=== PATIENT | male | born 1955 | race Two or more races ===

== ENCOUNTER 2022-01-30 13:11 | Inpatient (IN) | payer MEDICARE, MEDICAID ==
[~2022-01-30] VITALS: Ht 180.3 cm; Wt 170.0 kg
[2022-01-30] MEDS ORDERED: SODIUM CHLORIDE 0.9% 1,000 ML IV ONE (13:45)
[2022-01-30 14:15] LABS: Basophils # (auto) 0 10 ^3/uL (0-0.2); Basophils % (auto) 0.5 % (0.0-2.0); Eosinophils # (auto) 0 10 ^3/uL (0-0.8); Eosinophils % (auto) 0.2 % (0.0-7.0); Hemoglobin 12.1 g/dL (13.5-17.5); Lymphocytes # (auto) 0.2 10 ^3/uL (0.4-5.4); Lymphocytes % (auto) 2.9 % (10.0-50.0); Mean Corpuscular Hemoglobin 29.8 pg (28.0-32.0); Mean Corpuscular Hgb Conc. 32.8 g/dL (32.0-36.0); Mean Corpuscular Volume 90.7 fL (80.0-100.0); Monocytes # (auto) 0.2 10 ^3/uL (0-1.3); Monocytes % (auto) 2.4 % (0.0-12.0); Neutrophils # (auto) 6.3 10 ^3/uL (1.6-8.6); Red Blood Cells 4.08 10^6/uL (4.5-5.90); Red Cell Distribution Width 15.3 % (11.8-14.3); White Blood Cell 6.7 10^3/uL (4.4-10.8)
[2022-01-30 14:31] LABS: INR 1.06 (0.9-1.15); Partial Thromboplastin Time 28.8 sec (24.6-33.4)
[2022-01-30 14:58] LABS: BUN/Creatinine Ratio 29.4; Calcium 8.5 mg/dL (8.5-10.1); Potassium 3.6 mmol/L (3.5-5.1)
[2022-01-30 14:59] LABS: Albumin 2.6 g/dL (3.4-5.0); Bilirubin, Total 0.7 mg/dL (0.2-1.0); Total Protein 7.7 g/dL (6.4-8.2)
[2022-01-30] MEDS ORDERED: ACETAMINOPHEN 325 MG TAB PO ONE (16:15)
[2022-01-30 16:29] LABS: Urine Bacteria NONE SEEN /hpf (None Seen); Urine Blood Negative /uL (Negative); Urine WBC <1 /hpf (0 - 3)
[2022-01-30] MEDS ORDERED: cefTRIAXone 1GM/50ML D5W 50 ML IV ONE (16:45)
[2022-01-30] MEDS ORDERED: AZITHROMYCIN 500MG/ 250ML 250 ML IV ONE (16:45)
[2022-01-30] MEDS ORDERED: FUROSEMIDE 40 MG/4 ML VIAL IV ONE (16:45)
[2022-01-30] MEDS ORDERED: NITROGLYCERIN 0.4 MG SL TAB SL PRN (17:30)
[2022-01-30] MEDS ORDERED: MORPHINE SULFATE INJ 2 MG/ml SYRG IV PRN ×2 (17:30)
[2022-01-30] MEDS ORDERED: FLUO40CA PO (17:43)
[2022-01-30] MEDS ORDERED: LEVO100T8 PO (17:43)
[2022-01-30] MEDS ORDERED: ATEN25TA PO (17:43)
[2022-01-30] MEDS ORDERED: AMLO-489 PO (17:43)
[2022-01-30] MEDS ORDERED: HYDR50TA15 PO (17:43)
[2022-01-30] MEDS ORDERED: CAPT100T2 PO (17:43)
[2022-01-30] MEDS ORDERED: DEXTROSE (50%) 50ML SYRG IV PRN (17:45)
[2022-01-30] MEDS ORDERED: POTASSIUM CHL 20 Meq TABLET PO ONE (17:45)
[2022-01-30] MEDS ORDERED: SODIUM CHLORIDE 0.9% 1,000 ML IV SCH (17:45)
[2022-01-30 18:23] LABS: Cholesterol 143 mg/dL (< 200)
[2022-01-30] MEDS ORDERED: DEXA4TAB90 PO (18:24)
[2022-01-30] MEDS ORDERED: HYDR-4072 (18:24)
[2022-01-30] MEDS ORDERED: CHLO25TA2 PO (18:24)
[2022-01-30] MEDS ORDERED: ACYC-166 PO (18:24)
[2022-01-30] MEDS ORDERED: FURO40TA4 PO (18:24)
[2022-01-30] MEDS ORDERED: LEVO250T69 PO (18:24)
[2022-01-30] MEDS ORDERED: POTA-167 (18:24)
[2022-01-30] MEDS ORDERED: MORP30TA5 PO (18:24)
[2022-01-30] MEDS ORDERED: ARIP10TA29 PO (18:24)
[2022-01-30 18:26] LABS: HDL Cholesterol 48 mg/dL (40-59); LDL Cholesterol 77 mg/dL (< 100); Triglycerides 109 mg/dL (< 150)
[2022-01-30] MEDS ORDERED: POM PO (18:37)
[2022-01-30] MEDS: amLODIPine BESYLATE 5 MG TAB PO SCH (22:00)
[2022-01-30] MEDS: CAPTOPRIL 25 MG TAB PO SCH (22:00)
[2022-01-30] MEDS: hydrALAZINE HCL 25 MG TAB PO SCH (22:00)
[2022-01-30] MEDS: ATENOLOL 25 MG TAB PO SCH (22:00)
[2022-01-30] MEDS: ACCU-CHEK COMFORT CURVE STRIP VI SCH (22:51)
[2022-01-30] MEDS: InsuLIN REG 1unit/0.01ml Soln (100units/ml) SC SCH (23:02)
[2022-01-30] MEDS: NYSTATIN TOPICAL POWDER 15GM TOP SCH (23:11)
[2022-01-31] MEDS: HYDROcodone-ACET 5/325MG TAB PO PRN ×3 (00:42→16:21)
[2022-01-31 04:31] LABS: Basophils # (auto) 0 10 ^3/uL (0-0.2); Basophils % (auto) 0.5 % (0.0-2.0); Eosinophils # (auto) 0 10 ^3/uL (0-0.8); Eosinophils % (auto) 0.1 % (0.0-7.0); Hematocrit 28.8 % (41.0-53.0); Hemoglobin 9.5 g/dL (13.5-17.5); Lymphocytes # (auto) 0.3 10 ^3/uL (0.4-5.4); Lymphocytes % (auto) 6.5 % (10.0-50.0); Mean Corpuscular Hemoglobin 29.5 pg (28.0-32.0); Mean Corpuscular Volume 89.4 fL (80.0-100.0); Monocytes # (auto) 0.2 10 ^3/uL (0-1.3); Monocytes % (auto) 3.7 % (0.0-12.0); Neutrophils # (auto) 4.4 10 ^3/uL (1.6-8.6); Neutrophils % (auto) 89.2 % (37.0-80.0); Nucleated Red Blood Cells % 0.1 %; Red Blood Cells 3.22 10^6/uL (4.5-5.90); Red Cell Distribution Width 14.8 % (11.8-14.3); White Blood Cell 4.9 10^3/uL (4.4-10.8)
[2022-01-31 04:54] LABS: Potassium 3.1 mmol/L (3.5-5.1)
[2022-01-31 05:02] LABS: BUN/Creatinine Ratio 30.6; Bilirubin, Total 0.6 mg/dL (0.2-1.0); Calcium 7.5 mg/dL (8.5-10.1); Total Protein 6.5 g/dL (6.4-8.2)
[2022-01-31] MEDS: InsuLIN REG 1unit/0.01ml Soln (100units/ml) SC SCH ×4 (07:00→22:25)
[2022-01-31] MEDS: hydrALAZINE HCL 25 MG TAB PO SCH ×3 (07:05→22:12)
[2022-01-31] MEDS: CAPTOPRIL 25 MG TAB PO SCH ×3 (07:06→22:22)
[2022-01-31] MEDS: FLUoxetine HCL 20 MG CAP PO SCH (07:08)
[2022-01-31] MEDS: LEVOTHYROXINE SODIUM 100 MCG TAB PO SCH (07:08)
[2022-01-31] MEDS: ACCU-CHEK COMFORT CURVE STRIP VI SCH ×4 (07:27→22:12)
[2022-01-31] MEDS: cefTRIAXone 1GM/50ML D5W 50 ML IV SCH (09:55)
[2022-01-31] MEDS ORDERED: POTASSIUM CHL 10 Meq TABLET PO SCH (10:00)
[2022-01-31] MEDS: AZITHROMYCIN 500MG/ 250ML 250 ML IV SCH (10:53)
[2022-01-31] MEDS: amLODIPine BESYLATE 5 MG TAB PO SCH ×2 (10:54→22:16)
[2022-01-31] MEDS: ENOXAPARIN SOD 40 MG/0.4 ML SYRINGE SC SCH (10:57)
[2022-01-31] MEDS: FUROSEMIDE 20 MG/2 ML VIAL IV SCH (10:57)
[2022-01-31] MEDS: NYSTATIN TOPICAL POWDER 15GM TOP SCH ×2 (10:58→22:25)
[2022-01-31] MEDS: ATENOLOL 25 MG TAB PO SCH ×2 (11:33→22:16)
[2022-01-31] MEDS ORDERED: POTASSIUM EFFERVESENT TAB 25 MEQ PO ONE (12:30)
[2022-01-31] MEDS ORDERED: ZINC SULFATE 220mg CAP or TAB PO ONE (13:15)
[2022-01-31] MEDS ORDERED: ASCORBIC ACID 500 MG TAB PO ONE (13:15)
[2022-01-31] MEDS ORDERED: CHOLECALCIFEROL (VITD3) 2,000 UNIT CAP/TAB PO ONE (13:15)
[2022-01-31] MEDS ORDERED: ALBUTEROL SULF 2.5 MG/0.5ML(0.5%) NEB SOLN NEB SCH (14:00)
[2022-01-31] MEDS ORDERED: IPRATROPIUM BROM 0.5 MG/2.5ML INH SOL NEB SCH (14:00)
[2022-01-31] MEDS: methylPREDNISolone SOD SUCC 125 MG/2 ML VL IV SCH ×2 (14:12→22:16)
[2022-01-31 14:13] VITALS: BP 134/74
[2022-01-31] MEDS: ALBUTEROL SULF HFA 90MCG INH 200DOSE IN SCH (22:00)
[2022-01-31] MEDS: ASCORBIC ACID 500 MG TAB PO SCH (22:13)
[2022-01-31 23:21] VITALS: BP 145/86
[2022-02-01] MEDS: HYDROcodone-ACET 5/325MG TAB PO PRN ×2 (00:29→15:45)
[2022-02-01] MEDS ORDERED: ONDANSETRON HCL 4 MG/2 ML VIAL IV PRN (03:30)
[2022-02-01 05:00] VITALS: BP 121/98
[2022-02-01] MEDS: CAPTOPRIL 25 MG TAB PO SCH ×3 (05:48→22:50)
[2022-02-01] MEDS: methylPREDNISolone SOD SUCC 125 MG/2 ML VL IV SCH ×3 (05:48→22:49)
[2022-02-01] MEDS: FLUoxetine HCL 20 MG CAP PO SCH (05:48)
[2022-02-01] MEDS: hydrALAZINE HCL 25 MG TAB PO SCH ×3 (05:48→22:49)
[2022-02-01] MEDS: ACCU-CHEK COMFORT CURVE STRIP VI SCH ×4 (05:49→22:53)
[2022-02-01] MEDS: LEVOTHYROXINE SODIUM 100 MCG TAB PO SCH (05:49)
[2022-02-01] MEDS: InsuLIN REG 1unit/0.01ml Soln (100units/ml) SC SCH ×4 (05:50→22:55)
[2022-02-01] MEDS: ALBUTEROL SULF HFA 90MCG INH 200DOSE IN SCH ×3 (06:00→19:56)
[2022-02-01] MEDS: hydrALAZINE HCL 20 MG/ML VL IV PRN ×2 (06:20→14:34)
[2022-02-01 09:11] VITALS: BP 167/89
[2022-02-01] MEDS: cefTRIAXone 1GM/50ML D5W 50 ML IV SCH (09:30)
[2022-02-01] MEDS: ZINC SULFATE 220mg CAP or TAB PO SCH (09:31)
[2022-02-01] MEDS: ASPirin 81 mg TAB PO SCH (09:31)
[2022-02-01] MEDS: FUROSEMIDE 20 MG/2 ML VIAL IV SCH (09:31)
[2022-02-01] MEDS: CHOLECALCIFEROL (VITD3) 2,000 UNIT CAP/TAB PO SCH (09:31)
[2022-02-01] MEDS: ASCORBIC ACID 500 MG TAB PO SCH ×2 (09:31→22:52)
[2022-02-01] MEDS: ENOXAPARIN SOD 40 MG/0.4 ML SYRINGE SC SCH (09:32)
[2022-02-01] MEDS: NYSTATIN TOPICAL POWDER 15GM TOP SCH ×2 (09:32→22:53)
[2022-02-01] MEDS: ATENOLOL 25 MG TAB PO SCH ×2 (09:32→22:00)
[2022-02-01] MEDS: amLODIPine BESYLATE 5 MG TAB PO SCH ×2 (09:32→22:51)
[2022-02-01] MEDS ORDERED: REMDESIVIR PER PHARMACY 0 ML IV SCH (10:45)
[2022-02-01] MEDS: ONDANSETRON HCL 4 MG/2 ML VIAL IV PRN ×3 (11:00→22:54)
[2022-02-01] MEDS: AZITHROMYCIN 500MG/ 250ML 250 ML IV SCH (11:11)
[2022-02-01 13:00] VITALS: BP 185/100
[2022-02-01] MEDS ORDERED: REMDESIVIR 200 MG in NS 210ml LOADING DOSE ADULT IV ONE (15:00)
[2022-02-01 17:00] VITALS: BP 174/57
[2022-02-01 22:00] VITALS: BP 164/93
[2022-02-02 05:00] VITALS: BP 144/82
[2022-02-02 05:59] LABS: Calcium 8.1 mg/dL (8.5-10.1); Potassium 3.3 mmol/L (3.5-5.1)
[2022-02-02] MEDS: ALBUTEROL SULF HFA 90MCG INH 200DOSE IN SCH ×3 (06:00→22:00)
[2022-02-02 06:02] LABS: BUN/Creatinine Ratio 32.9
[2022-02-02 06:13] LABS: Bilirubin, Total 0.6 mg/dL (0.2-1.0); Total Protein 7.3 g/dL (6.4-8.2)
[2022-02-02] MEDS: methylPREDNISolone SOD SUCC 125 MG/2 ML VL IV SCH ×3 (06:20→21:33)
[2022-02-02] MEDS: CAPTOPRIL 25 MG TAB PO SCH ×3 (06:21→21:43)
[2022-02-02] MEDS: hydrALAZINE HCL 25 MG TAB PO SCH ×3 (06:21→21:43)
[2022-02-02] MEDS: FLUoxetine HCL 20 MG CAP PO SCH (06:22)
[2022-02-02] MEDS: ACCU-CHEK COMFORT CURVE STRIP VI SCH ×4 (06:22→21:45)
[2022-02-02] MEDS: LEVOTHYROXINE SODIUM 100 MCG TAB PO SCH (06:22)
[2022-02-02] MEDS: HYDROcodone-ACET 5/325MG TAB PO PRN ×2 (06:23→12:07)
[2022-02-02] MEDS: InsuLIN REG 1unit/0.01ml Soln (100units/ml) SC SCH ×4 (06:31→21:55)
[2022-02-02] MEDS: AZITHROMYCIN 500MG/ 250ML 250 ML IV SCH (08:15)
[2022-02-02] MEDS: cefTRIAXone 1GM/50ML D5W 50 ML IV SCH (08:15)
[2022-02-02] MEDS: ZINC SULFATE 220mg CAP or TAB PO SCH (08:15)
[2022-02-02] MEDS: ENOXAPARIN SOD 40 MG/0.4 ML SYRINGE SC SCH (08:15)
[2022-02-02] MEDS: ASPirin 81 mg TAB PO SCH (08:15)
[2022-02-02] MEDS: ASCORBIC ACID 500 MG TAB PO SCH ×2 (08:16→21:44)
[2022-02-02] MEDS: amLODIPine BESYLATE 5 MG TAB PO SCH ×2 (08:16→21:44)
[2022-02-02] MEDS: CHOLECALCIFEROL (VITD3) 2,000 UNIT CAP/TAB PO SCH (08:16)
[2022-02-02] MEDS: ATENOLOL 25 MG TAB PO SCH ×2 (08:16→21:44)
[2022-02-02] MEDS: NYSTATIN TOPICAL POWDER 15GM TOP SCH ×2 (08:17→21:45)
[2022-02-02] MEDS: FUROSEMIDE 20 MG/2 ML VIAL IV SCH (08:19)
[2022-02-02 09:00] VITALS: BP 154/76
[2022-02-02] MEDS ORDERED: FUROSEMIDE 20 MG/2 ML VIAL IV ONE (11:30)
[2022-02-02 13:00] VITALS: BP 142/71
[2022-02-02] MEDS: REMDESIVIR 100mg 100 MG in SODIUM CHL 0.9% 230 ML IV SCH (15:19)
[2022-02-02 22:00] VITALS: BP 159/88
[2022-02-03 05:00] VITALS: BP 159/80
[2022-02-03] MEDS: methylPREDNISolone SOD SUCC 125 MG/2 ML VL IV SCH ×3 (06:51→21:35)
[2022-02-03] MEDS: hydrALAZINE HCL 25 MG TAB PO SCH ×3 (06:52→21:54)
[2022-02-03] MEDS: CAPTOPRIL 25 MG TAB PO SCH ×3 (06:53→21:55)
[2022-02-03] MEDS: LEVOTHYROXINE SODIUM 100 MCG TAB PO SCH (06:54)
[2022-02-03] MEDS: FLUoxetine HCL 20 MG CAP PO SCH (06:54)
[2022-02-03] MEDS: ACCU-CHEK COMFORT CURVE STRIP VI SCH ×4 (06:54→21:50)
[2022-02-03] MEDS: ONDANSETRON HCL 4 MG/2 ML VIAL IV PRN (06:57)
[2022-02-03] MEDS: InsuLIN REG 1unit/0.01ml Soln (100units/ml) SC SCH ×4 (06:57→21:54)
[2022-02-03 06:58] LABS: Calcium 8.7 mg/dL (8.5-10.1); Potassium 3.5 mmol/L (3.5-5.1)
[2022-02-03 07:01] LABS: Albumin 1.8 g/dL (3.4-5.0); BUN/Creatinine Ratio 38.2
[2022-02-03 07:29] LABS: Bilirubin, Total 0.6 mg/dL (0.2-1.0); Phosphorus 2.5 mg/dL (2.5-4.90)
[2022-02-03] MEDS: ALBUTEROL SULF HFA 90MCG INH 200DOSE IN SCH ×3 (07:47→22:30)
[2022-02-03] MEDS: cefTRIAXone 1GM/50ML D5W 50 ML IV SCH (08:30)
[2022-02-03] MEDS: AZITHROMYCIN 500MG/ 250ML 250 ML IV SCH (08:30)
[2022-02-03] MEDS: FUROSEMIDE 40 MG/4 ML VIAL IV SCH (08:30)
[2022-02-03] MEDS: ENOXAPARIN SOD 40 MG/0.4 ML SYRINGE SC SCH (08:30)
[2022-02-03] MEDS: ASPirin 81 mg TAB PO SCH (08:31)
[2022-02-03] MEDS: CHOLECALCIFEROL (VITD3) 2,000 UNIT CAP/TAB PO SCH (08:31)
[2022-02-03] MEDS: ZINC SULFATE 220mg CAP or TAB PO SCH (08:31)
[2022-02-03] MEDS: amLODIPine BESYLATE 5 MG TAB PO SCH ×2 (08:32→22:09)
[2022-02-03] MEDS: ASCORBIC ACID 500 MG TAB PO SCH ×2 (08:33→21:35)
[2022-02-03] MEDS: ATENOLOL 25 MG TAB PO SCH ×2 (08:33→21:56)
[2022-02-03] MEDS: NYSTATIN TOPICAL POWDER 15GM TOP SCH ×2 (08:33→21:51)
[2022-02-03 08:41] VITALS: BP 190/95
[2022-02-03] MEDS: HYDROcodone-ACET 5/325MG TAB PO PRN ×3 (09:56→21:53)
[2022-02-03 12:30] VITALS: BP 132/91
[2022-02-03] MEDS: REMDESIVIR 100mg 100 MG in SODIUM CHL 0.9% 230 ML IV SCH (15:01)
[2022-02-03 15:30] VITALS: BP 132/91
[2022-02-03 17:00] VITALS: BP 158/85
[2022-02-03 22:00] VITALS: BP 157/101
[2022-02-04] MEDS: HYDROcodone-ACET 5/325MG TAB PO PRN ×4 (03:34→20:33)
[2022-02-04 05:00] VITALS: BP 132/76
[2022-02-04] MEDS: hydrALAZINE HCL 25 MG TAB PO SCH ×3 (05:25→21:11)
[2022-02-04] MEDS: CAPTOPRIL 25 MG TAB PO SCH ×4 (05:26→21:52)
[2022-02-04] MEDS: methylPREDNISolone SOD SUCC 125 MG/2 ML VL IV SCH ×3 (05:26→21:13)
[2022-02-04] MEDS: ACCU-CHEK COMFORT CURVE STRIP VI SCH ×4 (06:07→21:16)
[2022-02-04] MEDS: LEVOTHYROXINE SODIUM 100 MCG TAB PO SCH (06:07)
[2022-02-04] MEDS: FLUoxetine HCL 20 MG CAP PO SCH (06:07)
[2022-02-04] MEDS: InsuLIN REG 1unit/0.01ml Soln (100units/ml) SC SCH ×4 (06:08→21:30)
[2022-02-04 06:16] LABS: Albumin 1.8 g/dL (3.4-5.0); Calcium 8.4 mg/dL (8.5-10.1); Potassium 3.6 mmol/L (3.5-5.1)
[2022-02-04 06:21] LABS: BUN/Creatinine Ratio 37.5; Bilirubin, Total 0.6 mg/dL (0.2-1.0); Total Protein 7.9 g/dL (6.4-8.2)
[2022-02-04] MEDS: ALBUTEROL SULF HFA 90MCG INH 200DOSE IN SCH ×3 (06:57→22:01)
[2022-02-04 08:30] VITALS: BP 155/81
[2022-02-04] MEDS: cefTRIAXone 1GM/50ML D5W 50 ML IV SCH (09:01)
[2022-02-04] MEDS: ENOXAPARIN SOD 40 MG/0.4 ML SYRINGE SC SCH (09:02)
[2022-02-04] MEDS: ZINC SULFATE 220mg CAP or TAB PO SCH (09:04)
[2022-02-04] MEDS: ATENOLOL 25 MG TAB PO SCH ×2 (09:04→21:14)
[2022-02-04] MEDS: CHOLECALCIFEROL (VITD3) 2,000 UNIT CAP/TAB PO SCH (09:04)
[2022-02-04] MEDS: ASCORBIC ACID 500 MG TAB PO SCH ×2 (09:04→21:15)
[2022-02-04] MEDS: amLODIPine BESYLATE 5 MG TAB PO SCH ×2 (09:05→21:13)
[2022-02-04] MEDS: ASPirin 81 mg TAB PO SCH (09:05)
[2022-02-04] MEDS: PANTOPRAZOLE 40 MG TAB PO SCH (09:05)
[2022-02-04] MEDS: FUROSEMIDE 40 MG/4 ML VIAL IV SCH (09:07)
[2022-02-04] MEDS: AZITHROMYCIN 500MG/ 250ML 250 ML IV SCH (10:22)
[2022-02-04] MEDS: NYSTATIN TOPICAL POWDER 15GM TOP SCH ×2 (10:23→21:15)
[2022-02-04 12:52] VITALS: BP 137/77
[2022-02-04] MEDS: REMDESIVIR 100mg 100 MG in SODIUM CHL 0.9% 230 ML IV SCH (15:24)
[2022-02-04 16:33] VITALS: BP 151/60
[2022-02-04 22:00] VITALS: BP 94/50
[2022-02-05 05:00] VITALS: BP 146/81
[2022-02-05] MEDS: HYDROcodone-ACET 5/325MG TAB PO PRN ×3 (05:25→18:24)
[2022-02-05] MEDS: LEVOTHYROXINE SODIUM 100 MCG TAB PO SCH (05:27)
[2022-02-05] MEDS: FLUoxetine HCL 20 MG CAP PO SCH (05:27)
[2022-02-05] MEDS: hydrALAZINE HCL 25 MG TAB PO SCH ×3 (05:28→22:52)
[2022-02-05] MEDS: methylPREDNISolone SOD SUCC 125 MG/2 ML VL IV SCH ×3 (05:28→22:52)
[2022-02-05 06:05] LABS: Calcium 8.3 mg/dL (8.5-10.1); Potassium 4.2 mmol/L (3.5-5.1)
[2022-02-05 06:08] LABS: BUN/Creatinine Ratio 45.3; Bilirubin, Total 0.7 mg/dL (0.2-1.0); Total Protein 7.1 g/dL (6.4-8.2)
[2022-02-05] MEDS: ACCU-CHEK COMFORT CURVE STRIP VI SCH ×4 (06:17→22:51)
[2022-02-05] MEDS: InsuLIN REG 1unit/0.01ml Soln (100units/ml) SC SCH ×4 (06:18→23:01)
[2022-02-05] MEDS: ALBUTEROL SULF HFA 90MCG INH 200DOSE IN SCH ×3 (07:05→22:00)
[2022-02-05 09:07] VITALS: BP 183/98
[2022-02-05] MEDS: cefTRIAXone 1GM/50ML D5W 50 ML IV SCH (09:35)
[2022-02-05] MEDS: FUROSEMIDE 40 MG/4 ML VIAL IV SCH (09:36)
[2022-02-05] MEDS: ENOXAPARIN SOD 40 MG/0.4 ML SYRINGE SC SCH (09:36)
[2022-02-05] MEDS: NYSTATIN TOPICAL POWDER 15GM TOP SCH ×2 (09:37→22:51)
[2022-02-05] MEDS: amLODIPine BESYLATE 5 MG TAB PO SCH ×2 (09:40→22:51)
[2022-02-05] MEDS: PANTOPRAZOLE 40 MG TAB PO SCH (09:40)
[2022-02-05] MEDS: CHOLECALCIFEROL (VITD3) 2,000 UNIT CAP/TAB PO SCH (09:40)
[2022-02-05] MEDS: ASPirin 81 mg TAB PO SCH (09:40)
[2022-02-05] MEDS: ASCORBIC ACID 500 MG TAB PO SCH ×2 (09:40→22:51)
[2022-02-05] MEDS: ZINC SULFATE 220mg CAP or TAB PO SCH (09:41)
[2022-02-05] MEDS: ATENOLOL 25 MG TAB PO SCH ×2 (09:41→22:50)
[2022-02-05] MEDS ORDERED: SODIUM CHLORIDE 0.9% 1,000 ML IV SCH (11:30)
[2022-02-05] MEDS: AZITHROMYCIN 500MG/ 250ML 250 ML IV SCH (12:00)
[2022-02-05 12:27] VITALS: BP 146/88
[2022-02-05] MEDS: CAPTOPRIL 25 MG TAB PO SCH ×2 (14:35→22:52)
[2022-02-05] MEDS: REMDESIVIR 100mg 100 MG in SODIUM CHL 0.9% 230 ML IV SCH (16:18)
[2022-02-05 16:42] VITALS: BP 125/79
[2022-02-05 22:21] VITALS: BP 132/61
[2022-02-06] MEDS: HYDROcodone-ACET 5/325MG TAB PO PRN ×4 (02:58→22:47)
[2022-02-06 05:36] VITALS: BP 136/70
[2022-02-06] MEDS: ALBUTEROL SULF HFA 90MCG INH 200DOSE IN SCH ×3 (06:44→19:13)
[2022-02-06] MEDS: CAPTOPRIL 25 MG TAB PO SCH ×3 (06:54→22:44)
[2022-02-06] MEDS: hydrALAZINE HCL 25 MG TAB PO SCH ×3 (06:55→22:43)
[2022-02-06] MEDS: FLUoxetine HCL 20 MG CAP PO SCH (06:55)
[2022-02-06] MEDS: LEVOTHYROXINE SODIUM 100 MCG TAB PO SCH (06:57)
[2022-02-06] MEDS: ACCU-CHEK COMFORT CURVE STRIP VI SCH ×4 (06:57→22:45)
[2022-02-06] MEDS: methylPREDNISolone SOD SUCC 125 MG/2 ML VL IV SCH ×3 (06:57→22:42)
[2022-02-06] MEDS: InsuLIN REG 1unit/0.01ml Soln (100units/ml) SC SCH ×4 (06:58→22:47)
[2022-02-06 08:25] VITALS: BP 136/70
[2022-02-06 08:54] VITALS: BP 140/77
[2022-02-06 09:03] LABS: Basophils # (auto) 0 10 ^3/uL (0-0.2); Basophils % (auto) 0.2 % (0.0-2.0); Eosinophils # (auto) 0 10 ^3/uL (0-0.8); Hematocrit 35.3 % (41.0-53.0); Hemoglobin 11.9 g/dL (13.5-17.5); Lymphocytes # (auto) 0.1 10 ^3/uL (0.4-5.4); Lymphocytes % (auto) 1.4 % (10.0-50.0); Mean Corpuscular Hgb Conc. 33.7 g/dL (32.0-36.0); Monocytes # (auto) 0.6 10 ^3/uL (0-1.3); Monocytes % (auto) 6.6 % (0.0-12.0); Neutrophils # (auto) 8.1 10 ^3/uL (1.6-8.6); Neutrophils % (auto) 91.8 % (37.0-80.0); Red Blood Cells 3.97 10^6/uL (4.5-5.90); Red Cell Distribution Width 14.5 % (11.8-14.3); White Blood Cell 8.8 10^3/uL (4.4-10.8)
[2022-02-06] MEDS: cefTRIAXone 1GM/50ML D5W 50 ML IV SCH (09:08)
[2022-02-06] MEDS: FUROSEMIDE 40 MG/4 ML VIAL IV SCH (09:09)
[2022-02-06] MEDS: NYSTATIN TOPICAL POWDER 15GM TOP SCH ×2 (09:09→22:45)
[2022-02-06] MEDS: amLODIPine BESYLATE 5 MG TAB PO SCH ×2 (09:10→22:43)
[2022-02-06] MEDS: ASCORBIC ACID 500 MG TAB PO SCH ×2 (09:10→22:44)
[2022-02-06] MEDS: PANTOPRAZOLE 40 MG TAB PO SCH (09:10)
[2022-02-06] MEDS: ATENOLOL 25 MG TAB PO SCH ×2 (09:11→22:44)
[2022-02-06] MEDS: ASPirin 81 mg TAB PO SCH (09:12)
[2022-02-06] MEDS: ZINC SULFATE 220mg CAP or TAB PO SCH (09:12)
[2022-02-06] MEDS: CHOLECALCIFEROL (VITD3) 2,000 UNIT CAP/TAB PO SCH (09:12)
[2022-02-06] MEDS: ENOXAPARIN SOD 40 MG/0.4 ML SYRINGE SC SCH (09:35)
[2022-02-06] MEDS: AZITHROMYCIN 500MG/ 250ML 250 ML IV SCH (11:17)
[2022-02-06 12:55] VITALS: BP 117/66
[2022-02-06 17:00] VITALS: BP 149/70
[2022-02-06 22:00] VITALS: BP 124/82
[2022-02-07] MEDS: HYDROcodone-ACET 5/325MG TAB PO PRN ×4 (03:14→20:26)
[2022-02-07 05:00] VITALS: BP 145/78
[2022-02-07] MEDS: methylPREDNISolone SOD SUCC 125 MG/2 ML VL IV SCH (06:46)
[2022-02-07] MEDS: hydrALAZINE HCL 25 MG TAB PO SCH ×3 (06:46→22:06)
[2022-02-07] MEDS: FLUoxetine HCL 20 MG CAP PO SCH (06:47)
[2022-02-07] MEDS: CAPTOPRIL 25 MG TAB PO SCH ×3 (06:47→22:06)
[2022-02-07] MEDS: LEVOTHYROXINE SODIUM 100 MCG TAB PO SCH (06:47)
[2022-02-07] MEDS: ACCU-CHEK COMFORT CURVE STRIP VI SCH ×4 (06:47→22:08)
[2022-02-07] MEDS: InsuLIN REG 1unit/0.01ml Soln (100units/ml) SC SCH ×4 (06:51→22:29)
[2022-02-07] MEDS: ALBUTEROL SULF HFA 90MCG INH 200DOSE IN SCH ×2 (07:02→22:03)
[2022-02-07 09:00] VITALS: BP 140/69
[2022-02-07] MEDS: cefTRIAXone 1GM/50ML D5W 50 ML IV SCH (10:31)
[2022-02-07] MEDS: amLODIPine BESYLATE 5 MG TAB PO SCH ×2 (10:32→22:06)
[2022-02-07] MEDS: ASPirin 81 mg TAB PO SCH (10:32)
[2022-02-07] MEDS: ASCORBIC ACID 500 MG TAB PO SCH ×2 (10:32→22:08)
[2022-02-07] MEDS: FUROSEMIDE 40 MG/4 ML VIAL IV SCH (10:33)
[2022-02-07] MEDS: ZINC SULFATE 220mg CAP or TAB PO SCH (10:34)
[2022-02-07] MEDS: ATENOLOL 25 MG TAB PO SCH ×2 (10:34→22:00)
[2022-02-07] MEDS: NYSTATIN TOPICAL POWDER 15GM TOP SCH ×2 (10:35→22:08)
[2022-02-07] MEDS: ENOXAPARIN SOD 40 MG/0.4 ML SYRINGE SC SCH (10:35)
[2022-02-07] MEDS: CHOLECALCIFEROL (VITD3) 2,000 UNIT CAP/TAB PO SCH (10:35)
[2022-02-07] MEDS: AZITHROMYCIN 500MG/ 250ML 250 ML IV SCH (11:33)
[2022-02-07 13:00] VITALS: BP 128/67
[2022-02-07 17:00] VITALS: BP 139/77
[2022-02-07 22:00] VITALS: BP 124/64
[2022-02-07] MEDS: ARIPIPRAZOLE 10 MG PO SCH (22:05)
[2022-02-08] MEDS: HYDROcodone-ACET 5/325MG TAB PO PRN ×4 (03:02→23:18)
[2022-02-08 05:00] VITALS: BP 121/60
[2022-02-08] MEDS: hydrALAZINE HCL 25 MG TAB PO SCH ×3 (06:19→22:00)
[2022-02-08] MEDS: CAPTOPRIL 25 MG TAB PO SCH ×3 (06:20→22:00)
[2022-02-08] MEDS: FLUoxetine HCL 20 MG CAP PO SCH (06:20)
[2022-02-08] MEDS: LEVOTHYROXINE SODIUM 100 MCG TAB PO SCH (06:21)
[2022-02-08] MEDS: ACCU-CHEK COMFORT CURVE STRIP VI SCH ×4 (06:21→22:38)
[2022-02-08] MEDS: InsuLIN REG 1unit/0.01ml Soln (100units/ml) SC SCH ×4 (06:24→23:07)
[2022-02-08] MEDS: ALBUTEROL SULF HFA 90MCG INH 200DOSE IN SCH ×2 (06:40→22:00)
[2022-02-08 08:10] VITALS: BP 119/54
[2022-02-08] MEDS: cefTRIAXone 1GM/50ML D5W 50 ML IV SCH (09:23)
[2022-02-08] MEDS: ATENOLOL 25 MG TAB PO SCH ×2 (10:00→22:00)
[2022-02-08] MEDS: FUROSEMIDE 40 MG/4 ML VIAL IV SCH (11:19)
[2022-02-08] MEDS: methylPREDNISolone SOD SUCC 125 MG/2 ML VL IV SCH (11:20)
[2022-02-08] MEDS: CHOLECALCIFEROL (VITD3) 2,000 UNIT CAP/TAB PO SCH (11:20)
[2022-02-08] MEDS: ASCORBIC ACID 500 MG TAB PO SCH ×2 (11:20→22:39)
[2022-02-08] MEDS: ASPirin 81 mg TAB PO SCH (11:20)
[2022-02-08] MEDS: AZITHROMYCIN 500MG/ 250ML 250 ML IV SCH (11:20)
[2022-02-08] MEDS: ZINC SULFATE 220mg CAP or TAB PO SCH (11:21)
[2022-02-08] MEDS: amLODIPine BESYLATE 5 MG TAB PO SCH ×2 (11:21→22:00)
[2022-02-08] MEDS: NYSTATIN TOPICAL POWDER 15GM TOP SCH ×2 (11:22→22:39)
[2022-02-08] MEDS: ENOXAPARIN SOD 40 MG/0.4 ML SYRINGE SC SCH (11:24)
[2022-02-08 12:15] VITALS: BP 111/47
[2022-02-08 16:10] VITALS: BP 116/56
[2022-02-08 22:00] VITALS: BP 111/48
[2022-02-08] MEDS: ARIPIPRAZOLE 10 MG PO SCH (22:00)
[2022-02-09 05:00] VITALS: BP 115/52
[2022-02-09] MEDS: hydrALAZINE HCL 25 MG TAB PO SCH ×3 (06:00→22:00)
[2022-02-09] MEDS: CAPTOPRIL 25 MG TAB PO SCH ×3 (06:00→22:00)
[2022-02-09] MEDS: FLUoxetine HCL 20 MG CAP PO SCH (06:30)
[2022-02-09] MEDS: LEVOTHYROXINE SODIUM 100 MCG TAB PO SCH (06:30)
[2022-02-09] MEDS: ACCU-CHEK COMFORT CURVE STRIP VI SCH ×4 (06:30→22:28)
[2022-02-09] MEDS: InsuLIN REG 1unit/0.01ml Soln (100units/ml) SC SCH ×4 (06:33→22:38)
[2022-02-09] MEDS: ALBUTEROL SULF 2.5 MG/0.5ML(0.5%) NEB SOLN NEB SCH ×3 (07:22→18:16)
[2022-02-09 08:52] VITALS: BP 114/56
[2022-02-09] MEDS: FUROSEMIDE 40 MG/4 ML VIAL IV SCH (11:33)
[2022-02-09] MEDS: AZITHROMYCIN 500MG/ 250ML 250 ML IV SCH (11:33)
[2022-02-09] MEDS: cefTRIAXone 1GM/50ML D5W 50 ML IV SCH ×2 (11:33→14:28)
[2022-02-09] MEDS: HYDROcodone-ACET 5/325MG TAB PO PRN (11:34)
[2022-02-09] MEDS: ASCORBIC ACID 500 MG TAB PO SCH ×2 (11:34→22:28)
[2022-02-09] MEDS: ENOXAPARIN SOD 40 MG/0.4 ML SYRINGE SC SCH (11:34)
[2022-02-09] MEDS: CHOLECALCIFEROL (VITD3) 2,000 UNIT CAP/TAB PO SCH (11:34)
[2022-02-09] MEDS: ZINC SULFATE 220mg CAP or TAB PO SCH (11:34)
[2022-02-09] MEDS: ASPirin 81 mg TAB PO SCH (11:35)
[2022-02-09] MEDS: ATENOLOL 25 MG TAB PO SCH ×2 (11:35→22:00)
[2022-02-09] MEDS: amLODIPine BESYLATE 5 MG TAB PO SCH ×2 (11:36→22:34)
[2022-02-09] MEDS: methylPREDNISolone SOD SUCC 125 MG/2 ML VL IV SCH (11:36)
[2022-02-09] MEDS: NYSTATIN TOPICAL POWDER 15GM TOP SCH ×2 (11:40→22:28)
[2022-02-09 13:00] VITALS: BP 124/58
[2022-02-09 16:57] VITALS: BP 111/58
[2022-02-09 22:00] VITALS: BP 117/58
[2022-02-09] MEDS: ARIPIPRAZOLE 10 MG PO SCH (22:00)
[2022-02-09] MEDS: HYDROcodone-ACET 10/325MG TAB PO PRN (22:40)
[2022-02-10 05:00] VITALS: BP 140/86
[2022-02-10] MEDS: LEVOTHYROXINE SODIUM 100 MCG TAB PO SCH (06:44)
[2022-02-10] MEDS: FLUoxetine HCL 20 MG CAP PO SCH (06:44)
[2022-02-10] MEDS: CAPTOPRIL 25 MG TAB PO SCH ×3 (06:44→22:00)
[2022-02-10] MEDS: hydrALAZINE HCL 25 MG TAB PO SCH ×3 (06:44→22:01)
[2022-02-10] MEDS: HYDROcodone-ACET 10/325MG TAB PO PRN ×3 (06:45→22:45)
[2022-02-10] MEDS: ACCU-CHEK COMFORT CURVE STRIP VI SCH ×4 (06:45→22:04)
[2022-02-10] MEDS: InsuLIN REG 1unit/0.01ml Soln (100units/ml) SC SCH ×4 (06:45→22:06)
[2022-02-10] MEDS: ALBUTEROL SULF 2.5 MG/0.5ML(0.5%) NEB SOLN NEB SCH ×3 (06:54→18:38)
[2022-02-10 09:00] VITALS: BP 109/51
[2022-02-10] MEDS: methylPREDNISolone SOD SUCC 125 MG/2 ML VL IV SCH (09:26)
[2022-02-10] MEDS: FUROSEMIDE 40 MG/4 ML VIAL IV SCH (09:28)
[2022-02-10] MEDS: ASCORBIC ACID 500 MG TAB PO SCH ×2 (09:28→22:02)
[2022-02-10] MEDS: ZINC SULFATE 220mg CAP or TAB PO SCH (09:28)
[2022-02-10] MEDS: AZITHROMYCIN 500MG/ 250ML 250 ML IV SCH (09:28)
[2022-02-10] MEDS: ENOXAPARIN SOD 40 MG/0.4 ML SYRINGE SC SCH (09:28)
[2022-02-10] MEDS: CHOLECALCIFEROL (VITD3) 2,000 UNIT CAP/TAB PO SCH (09:29)
[2022-02-10] MEDS: ASPirin 81 mg TAB PO SCH (09:29)
[2022-02-10] MEDS: cefTRIAXone 1GM/50ML D5W 50 ML IV SCH (09:35)
[2022-02-10] MEDS: amLODIPine BESYLATE 5 MG TAB PO SCH ×2 (09:40→22:02)
[2022-02-10] MEDS: ATENOLOL 25 MG TAB PO SCH ×2 (09:40→22:03)
[2022-02-10 13:00] VITALS: BP_SYST 113; BP_SYST 117; BP_DIAS 56; BP_DIAS 60
[2022-02-10] MEDS: NYSTATIN TOPICAL POWDER 15GM TOP SCH ×2 (15:06→22:04)
[2022-02-10 20:00] VITALS: BP 128/73
[2022-02-10 22:00] VITALS: BP 128/73
[2022-02-10] MEDS: ARIPIPRAZOLE 10 MG PO SCH (22:00)
[2022-02-11] VITALS (8 sets, daily range): BP systolic 112–132; BP diastolic 62–73
[2022-02-11] MEDS: hydrALAZINE HCL 25 MG TAB PO SCH ×3 (06:00→21:52)
[2022-02-11] MEDS: CAPTOPRIL 25 MG TAB PO SCH ×3 (06:00→21:53)
[2022-02-11] MEDS: FLUoxetine HCL 20 MG CAP PO SCH (06:35)
[2022-02-11] MEDS: LEVOTHYROXINE SODIUM 100 MCG TAB PO SCH (06:35)
[2022-02-11] MEDS: ACCU-CHEK COMFORT CURVE STRIP VI SCH ×4 (06:35→21:55)
[2022-02-11] MEDS: InsuLIN REG 1unit/0.01ml Soln (100units/ml) SC SCH ×4 (06:37→21:56)
[2022-02-11] MEDS: HYDROcodone-ACET 10/325MG TAB PO PRN ×3 (06:39→19:49)
[2022-02-11] MEDS: ALBUTEROL SULF 2.5 MG/0.5ML(0.5%) NEB SOLN NEB SCH ×3 (07:31→17:53)
[2022-02-11] MEDS: cefTRIAXone 1GM/50ML D5W 50 ML IV SCH (12:29)
[2022-02-11] MEDS: ENOXAPARIN SOD 40 MG/0.4 ML SYRINGE SC SCH (12:33)
[2022-02-11] MEDS: CHOLECALCIFEROL (VITD3) 2,000 UNIT CAP/TAB PO SCH (12:33)
[2022-02-11] MEDS: methylPREDNISolone SOD SUCC 125 MG/2 ML VL IV SCH (12:33)
[2022-02-11] MEDS: ZINC SULFATE 220mg CAP or TAB PO SCH (12:33)
[2022-02-11] MEDS: ASPirin 81 mg TAB PO SCH (12:34)
[2022-02-11] MEDS: ASCORBIC ACID 500 MG TAB PO SCH ×2 (12:41→21:55)
[2022-02-11] MEDS: amLODIPine BESYLATE 5 MG TAB PO SCH ×3 (12:41→21:54)
[2022-02-11] MEDS: FUROSEMIDE 40 MG/4 ML VIAL IV SCH (12:44)
[2022-02-11] MEDS: ATENOLOL 25 MG TAB PO SCH ×2 (12:45→21:55)
[2022-02-11] MEDS: NYSTATIN TOPICAL POWDER 15GM TOP SCH ×2 (12:47→21:56)
[2022-02-11] MEDS: AZITHROMYCIN 500MG/ 250ML 250 ML IV SCH (14:05)
[2022-02-11] MEDS: ARIPIPRAZOLE 10 MG PO SCH (21:52)
[2022-02-12] VITALS (9 sets, daily range): BP systolic 97–130; BP diastolic 52–84
[2022-02-12] MEDS: HYDROcodone-ACET 10/325MG TAB PO PRN ×3 (04:26→22:30)
[2022-02-12] MEDS: CAPTOPRIL 25 MG TAB PO SCH ×3 (05:24→21:17)
[2022-02-12] MEDS: hydrALAZINE HCL 25 MG TAB PO SCH ×3 (05:25→21:16)
[2022-02-12] MEDS: FLUoxetine HCL 20 MG CAP PO SCH (06:22)
[2022-02-12] MEDS: LEVOTHYROXINE SODIUM 100 MCG TAB PO SCH (06:22)
[2022-02-12] MEDS: ACCU-CHEK COMFORT CURVE STRIP VI SCH ×4 (06:23→21:20)
[2022-02-12] MEDS: InsuLIN REG 1unit/0.01ml Soln (100units/ml) SC SCH ×4 (06:23→21:22)
[2022-02-12] MEDS: ALBUTEROL SULF 2.5 MG/0.5ML(0.5%) NEB SOLN NEB SCH ×3 (06:25→19:14)
[2022-02-12 06:33] LABS: Albumin 1.8 g/dL (3.4-5.0); Calcium 8.3 mg/dL (8.5-10.1); Potassium 4.3 mmol/L (3.5-5.1)
[2022-02-12 06:37] LABS: BUN/Creatinine Ratio 58.8
[2022-02-12 06:39] LABS: Bilirubin, Total 0.4 mg/dL (0.2-1.0)
[2022-02-12 08:42] LABS: Basophils # (auto) 0.1 10 ^3/uL (0-0.2); Basophils % (auto) 0.8 % (0.0-2.0); Eosinophils # (auto) 0.1 10 ^3/uL (0-0.8); Eosinophils % (auto) 0.5 % (0.0-7.0); Hematocrit 36.4 % (41.0-53.0); Hemoglobin 12.3 g/dL (13.5-17.5); Lymphocytes # (auto) 0.8 10 ^3/uL (0.4-5.4); Mean Corpuscular Hemoglobin 30.2 pg (28.0-32.0); Mean Corpuscular Hgb Conc. 33.7 g/dL (32.0-36.0); Mean Corpuscular Volume 89.6 fL (80.0-100.0); Monocytes # (auto) 0.5 10 ^3/uL (0-1.3); Monocytes % (auto) 4.2 % (0.0-12.0); Neutrophils # (auto) 10.2 10 ^3/uL (1.6-8.6); Neutrophils % (auto) 87.5 % (37.0-80.0); Nucleated Red Blood Cells % 0.1 %; Red Blood Cells 4.06 10^6/uL (4.5-5.90); White Blood Cell 11.7 10^3/uL (4.4-10.8)
[2022-02-12] MEDS: cefTRIAXone 1GM/50ML D5W 50 ML IV SCH (09:06)
[2022-02-12] MEDS: ASPirin 81 mg TAB PO SCH (10:33)
[2022-02-12] MEDS: AZITHROMYCIN 500MG/ 250ML 250 ML IV SCH (10:34)
[2022-02-12] MEDS: FUROSEMIDE 40 MG/4 ML VIAL IV SCH (10:35)
[2022-02-12] MEDS: methylPREDNISolone SOD SUCC 125 MG/2 ML VL IV SCH (10:39)
[2022-02-12] MEDS: ENOXAPARIN SOD 40 MG/0.4 ML SYRINGE SC SCH (10:39)
[2022-02-12] MEDS: NYSTATIN TOPICAL POWDER 15GM TOP SCH ×2 (10:44→21:20)
[2022-02-12] MEDS: amLODIPine BESYLATE 5 MG TAB PO SCH ×2 (10:44→21:18)
[2022-02-12] MEDS: CHOLECALCIFEROL (VITD3) 2,000 UNIT CAP/TAB PO SCH (10:45)
[2022-02-12] MEDS: ZINC SULFATE 220mg CAP or TAB PO SCH (10:45)
[2022-02-12] MEDS: ATENOLOL 25 MG TAB PO SCH ×2 (10:46→21:19)
[2022-02-12] MEDS: ASCORBIC ACID 500 MG TAB PO SCH ×2 (10:46→21:20)
[2022-02-12] MEDS: ARIPIPRAZOLE 10 MG PO SCH (21:23)
[2022-02-13] MEDS: ACETAMINOPHEN 325 MG TAB PO PRN ×2 (04:49→12:22)
[2022-02-13 05:00] VITALS: BP 135/63
[2022-02-13] MEDS: hydrALAZINE HCL 25 MG TAB PO SCH ×3 (05:36→22:31)
[2022-02-13] MEDS: CAPTOPRIL 25 MG TAB PO SCH ×3 (05:37→22:30)
[2022-02-13] MEDS: FLUoxetine HCL 20 MG CAP PO SCH (06:18)
[2022-02-13] MEDS: ACCU-CHEK COMFORT CURVE STRIP VI SCH ×4 (06:19→22:45)
[2022-02-13] MEDS: LEVOTHYROXINE SODIUM 100 MCG TAB PO SCH (06:19)
[2022-02-13] MEDS: InsuLIN REG 1unit/0.01ml Soln (100units/ml) SC SCH ×4 (06:19→22:49)
[2022-02-13] MEDS: ALBUTEROL SULF 2.5 MG/0.5ML(0.5%) NEB SOLN NEB SCH ×3 (06:54→18:32)
[2022-02-13] MEDS: ASPirin 81 mg TAB PO SCH (08:18)
[2022-02-13] MEDS: methylPREDNISolone SOD SUCC 125 MG/2 ML VL IV SCH (08:18)
[2022-02-13] MEDS: FUROSEMIDE 40 MG/4 ML VIAL IV SCH (08:18)
[2022-02-13] MEDS: HYDROcodone-ACET 10/325MG TAB PO PRN ×2 (08:19→16:04)
[2022-02-13] MEDS: ZINC SULFATE 220mg CAP or TAB PO SCH (08:19)
[2022-02-13] MEDS: amLODIPine BESYLATE 5 MG TAB PO SCH ×2 (08:20→22:30)
[2022-02-13] MEDS: ATENOLOL 25 MG TAB PO SCH ×2 (08:20→22:31)
[2022-02-13] MEDS: NYSTATIN TOPICAL POWDER 15GM TOP SCH ×2 (08:21→22:32)
[2022-02-13] MEDS: CHOLECALCIFEROL (VITD3) 2,000 UNIT CAP/TAB PO SCH (08:21)
[2022-02-13] MEDS: ENOXAPARIN SOD 40 MG/0.4 ML SYRINGE SC SCH (08:21)
[2022-02-13] MEDS: ASCORBIC ACID 500 MG TAB PO SCH ×2 (08:21→22:32)
[2022-02-13 08:30] VITALS: BP 110/59
[2022-02-13 09:39] LABS: Basophils # (auto) 0 10 ^3/uL (0-0.2); Basophils % (auto) 0.2 % (0.0-2.0); Eosinophils # (auto) 0.1 10 ^3/uL (0-0.8); Eosinophils % (auto) 0.6 % (0.0-7.0); Hematocrit 36.3 % (41.0-53.0); Hemoglobin 11.8 g/dL (13.5-17.5); Lymphocytes # (auto) 0.9 10 ^3/uL (0.4-5.4); Lymphocytes % (auto) 8.6 % (10.0-50.0); Mean Corpuscular Hemoglobin 28.9 pg (28.0-32.0); Mean Corpuscular Hgb Conc. 32.5 g/dL (32.0-36.0); Mean Corpuscular Volume 88.9 fL (80.0-100.0); Monocytes # (auto) 0.5 10 ^3/uL (0-1.3); Monocytes % (auto) 4.2 % (0.0-12.0); Neutrophils # (auto) 9.3 10 ^3/uL (1.6-8.6); Neutrophils % (auto) 86.4 % (37.0-80.0); Red Blood Cells 4.08 10^6/uL (4.5-5.90); White Blood Cell 10.8 10^3/uL (4.4-10.8)
[2022-02-13 09:51] LABS: BUN/Creatinine Ratio 32.5; Calcium 8.5 mg/dL (8.5-10.1); Potassium 3.9 mmol/L (3.5-5.1)
[2022-02-13] MEDS ORDERED: ALBUTEROL MEDNEB 2.5 mg/3ml NEB ONE ×2 (12:55→18:22)
[2022-02-13 13:12] VITALS: BP 117/75
[2022-02-13 16:30] VITALS: BP 103/67
[2022-02-13 20:00] VITALS: BP 131/60
[2022-02-13 22:21] VITALS: BP 131/60
[2022-02-13] MEDS: ARIPIPRAZOLE 10 MG PO SCH (22:41)
[2022-02-14] MEDS: HYDROcodone-ACET 10/325MG TAB PO PRN ×3 (04:17→20:45)
[2022-02-14 05:00] VITALS: BP 128/79
[2022-02-14] MEDS: hydrALAZINE HCL 25 MG TAB PO SCH ×3 (05:56→21:31)
[2022-02-14] MEDS: CAPTOPRIL 25 MG TAB PO SCH ×3 (05:58→21:34)
[2022-02-14] MEDS: FLUoxetine HCL 20 MG CAP PO SCH (05:58)
[2022-02-14] MEDS: LEVOTHYROXINE SODIUM 100 MCG TAB PO SCH (05:58)
[2022-02-14] MEDS: ACCU-CHEK COMFORT CURVE STRIP VI SCH ×4 (05:59→21:36)
[2022-02-14] MEDS: InsuLIN REG 1unit/0.01ml Soln (100units/ml) SC SCH ×4 (05:59→21:47)
[2022-02-14] MEDS ORDERED: ALBUTEROL MEDNEB 2.5 mg/3ml NEB ONE ×2 (06:12→10:37)
[2022-02-14] MEDS: ALBUTEROL SULF 2.5 MG/0.5ML(0.5%) NEB SOLN NEB SCH ×2 (07:13→11:28)
[2022-02-14 09:00] VITALS: BP 120/68
[2022-02-14] MEDS: FUROSEMIDE 40 MG/4 ML VIAL IV SCH (11:07)
[2022-02-14] MEDS: methylPREDNISolone SOD SUCC 40 MG/ML VL IV SCH (11:07)
[2022-02-14] MEDS: amLODIPine BESYLATE 5 MG TAB PO SCH ×2 (11:08→21:31)
[2022-02-14] MEDS: ENOXAPARIN SOD 40 MG/0.4 ML SYRINGE SC SCH (11:08)
[2022-02-14] MEDS: ASCORBIC ACID 500 MG TAB PO SCH ×2 (11:08→21:31)
[2022-02-14] MEDS: CHOLECALCIFEROL (VITD3) 2,000 UNIT CAP/TAB PO SCH (11:08)
[2022-02-14] MEDS: ZINC SULFATE 220mg CAP or TAB PO SCH (11:08)
[2022-02-14] MEDS: ASPirin 81 mg TAB PO SCH (11:09)
[2022-02-14] MEDS: ATENOLOL 25 MG TAB PO SCH ×2 (11:09→21:35)
[2022-02-14] MEDS: NYSTATIN TOPICAL POWDER 15GM TOP SCH ×2 (11:19→21:35)
[2022-02-14 13:00] VITALS: BP 133/62
[2022-02-14 17:00] VITALS: BP 115/68
[2022-02-14] MEDS: ALBUTEROL MEDNEB 2.5 mg/3ml NEB NEB SCH (20:10)
[2022-02-14] MEDS: ARIPIPRAZOLE 10 MG PO SCH (21:32)
[2022-02-14 22:00] VITALS: BP 120/60
[2022-02-15] MEDS: HYDROcodone-ACET 10/325MG TAB PO PRN ×3 (04:51→21:08)
[2022-02-15 05:00] VITALS: BP 132/83
[2022-02-15] MEDS: hydrALAZINE HCL 25 MG TAB PO SCH ×3 (06:36→21:51)
[2022-02-15] MEDS: FLUoxetine HCL 20 MG CAP PO SCH (06:36)
[2022-02-15] MEDS: LEVOTHYROXINE SODIUM 100 MCG TAB PO SCH (06:37)
[2022-02-15] MEDS: InsuLIN REG 1unit/0.01ml Soln (100units/ml) SC SCH ×4 (06:37→21:57)
[2022-02-15] MEDS: ACCU-CHEK COMFORT CURVE STRIP VI SCH ×4 (06:37→21:54)
[2022-02-15] MEDS: CAPTOPRIL 25 MG TAB PO SCH ×3 (07:03→21:52)
[2022-02-15] MEDS: ALBUTEROL MEDNEB 2.5 mg/3ml NEB NEB SCH ×3 (07:20→19:03)
[2022-02-15 09:00] VITALS: BP 139/72
[2022-02-15] MEDS: FUROSEMIDE 40 MG/4 ML VIAL IV SCH (12:01)
[2022-02-15] MEDS: ASCORBIC ACID 500 MG TAB PO SCH ×2 (12:02→21:54)
[2022-02-15] MEDS: methylPREDNISolone SOD SUCC 40 MG/ML VL IV SCH (12:02)
[2022-02-15] MEDS: ZINC SULFATE 220mg CAP or TAB PO SCH (12:03)
[2022-02-15] MEDS: amLODIPine BESYLATE 5 MG TAB PO SCH ×2 (12:03→21:53)
[2022-02-15] MEDS: ASPirin 81 mg TAB PO SCH (12:03)
[2022-02-15] MEDS: CHOLECALCIFEROL (VITD3) 2,000 UNIT CAP/TAB PO SCH (12:03)
[2022-02-15] MEDS: ATENOLOL 25 MG TAB PO SCH ×2 (12:04→21:54)
[2022-02-15] MEDS: ENOXAPARIN SOD 40 MG/0.4 ML SYRINGE SC SCH (12:07)
[2022-02-15 12:37] VITALS: BP 124/56
[2022-02-15] MEDS: NYSTATIN TOPICAL POWDER 15GM TOP SCH ×2 (13:41→21:54)
[2022-02-15 16:30] VITALS: BP 124/56
[2022-02-15 16:57] VITALS: BP 130/61
[2022-02-15] MEDS: ARIPIPRAZOLE 10 MG PO SCH (21:50)
[2022-02-15 22:00] VITALS: BP 124/56
[2022-02-15] MEDS ORDERED: LORazepam 2MG/ML-1ML VIAL IV PRN (22:30)
[2022-02-16] MEDS: HYDROcodone-ACET 10/325MG TAB PO PRN ×3 (04:35→22:17)
[2022-02-16 05:00] VITALS: BP 150/67
[2022-02-16 05:39] LABS: Basophils # (auto) 0.1 10 ^3/uL (0-0.2); Basophils % (auto) 0.6 % (0.0-2.0); Eosinophils # (auto) 0.1 10 ^3/uL (0-0.8); Eosinophils % (auto) 0.5 % (0.0-7.0); Hematocrit 35.9 % (41.0-53.0); Lymphocytes # (auto) 1.2 10 ^3/uL (0.4-5.4); Lymphocytes % (auto) 10.9 % (10.0-50.0); Mean Corpuscular Hemoglobin 29.5 pg (28.0-32.0); Mean Corpuscular Hgb Conc. 33.4 g/dL (32.0-36.0); Mean Corpuscular Volume 88.4 fL (80.0-100.0); Monocytes # (auto) 0.5 10 ^3/uL (0-1.3); Monocytes % (auto) 4.9 % (0.0-12.0); Neutrophils # (auto) 8.8 10 ^3/uL (1.6-8.6); Neutrophils % (auto) 83.1 % (37.0-80.0); Nucleated Red Blood Cells % 0.1 %; Red Blood Cells 4.06 10^6/uL (4.5-5.90); Red Cell Distribution Width 15.1 % (11.8-14.3); White Blood Cell 10.6 10^3/uL (4.4-10.8)
[2022-02-16 05:52] LABS: Anion Gap 4 (5-15); BUN/Creatinine Ratio 40.6; Blood Urea Nitrogen 26 mg/dL (7-18); Calcium 8.2 mg/dL (8.5-10.1); Carbon Dioxide 33 mmol/L (21-32); Chloride 97 mmol/L (98-107); GFR African American 160 mL/min; GFR Non-African American 133 mL/min; Glucose 114 mg/dL (74-106); Sodium 134 mmol/L (136-145)
[2022-02-16] MEDS: ACCU-CHEK COMFORT CURVE STRIP VI SCH ×4 (05:55→22:07)
[2022-02-16] MEDS: InsuLIN REG 1unit/0.01ml Soln (100units/ml) SC SCH ×4 (05:56→22:02)
[2022-02-16] MEDS: hydrALAZINE HCL 25 MG TAB PO SCH ×3 (05:57→22:00)
[2022-02-16] MEDS: CAPTOPRIL 25 MG TAB PO SCH ×3 (05:57→22:00)
[2022-02-16] MEDS: LEVOTHYROXINE SODIUM 100 MCG TAB PO SCH (05:58)
[2022-02-16] MEDS: FLUoxetine HCL 20 MG CAP PO SCH (05:58)
[2022-02-16] MEDS: ALBUTEROL MEDNEB 2.5 mg/3ml NEB NEB SCH ×3 (07:09→18:34)
[2022-02-16] MEDS: methylPREDNISolone SOD SUCC 40 MG/ML VL IV SCH (08:24)
[2022-02-16] MEDS: FUROSEMIDE 40 MG/4 ML VIAL IV SCH (08:24)
[2022-02-16] MEDS: CHOLECALCIFEROL (VITD3) 2,000 UNIT CAP/TAB PO SCH (08:25)
[2022-02-16] MEDS: ASCORBIC ACID 500 MG TAB PO SCH ×2 (08:25→22:07)
[2022-02-16] MEDS: ENOXAPARIN SOD 40 MG/0.4 ML SYRINGE SC SCH (08:25)
[2022-02-16] MEDS: ASPirin 81 mg TAB PO SCH (08:25)
[2022-02-16] MEDS: ZINC SULFATE 220mg CAP or TAB PO SCH (08:25)
[2022-02-16] MEDS: amLODIPine BESYLATE 5 MG TAB PO SCH ×2 (08:26→22:00)
[2022-02-16] MEDS: NYSTATIN TOPICAL POWDER 15GM TOP SCH ×2 (08:26→22:08)
[2022-02-16] MEDS: ATENOLOL 25 MG TAB PO SCH ×2 (08:26→22:07)
[2022-02-16 09:08] VITALS: BP 121/52
[2022-02-16 13:17] VITALS: BP 162/111
[2022-02-16 17:00] VITALS: BP 155/95
[2022-02-16 21:46] VITALS: BP 108/64
[2022-02-16] MEDS: ARIPIPRAZOLE 10 MG PO SCH (22:05)
[2022-02-17] VITALS (7 sets, daily range): BP systolic 109–179; BP diastolic 58–117
[2022-02-17] MEDS: hydrALAZINE HCL 25 MG TAB PO SCH ×3 (06:00→22:42)
[2022-02-17] MEDS: ACCU-CHEK COMFORT CURVE STRIP VI SCH ×4 (06:11→22:41)
[2022-02-17] MEDS: InsuLIN REG 1unit/0.01ml Soln (100units/ml) SC SCH ×3 (06:11→22:47)
[2022-02-17] MEDS: CAPTOPRIL 25 MG TAB PO SCH ×3 (06:42→23:42)
[2022-02-17] MEDS: FLUoxetine HCL 20 MG CAP PO SCH (06:42)
[2022-02-17] MEDS: HYDROcodone-ACET 10/325MG TAB PO PRN ×3 (06:43→22:39)
[2022-02-17] MEDS: LEVOTHYROXINE SODIUM 100 MCG TAB PO SCH (06:43)
[2022-02-17] MEDS: ALBUTEROL MEDNEB 2.5 mg/3ml NEB NEB SCH ×3 (07:00→18:06)
[2022-02-17] MEDS: methylPREDNISolone SOD SUCC 40 MG/ML VL IV SCH (08:11)
[2022-02-17] MEDS: FUROSEMIDE 40 MG/4 ML VIAL IV SCH (08:12)
[2022-02-17] MEDS: ENOXAPARIN SOD 40 MG/0.4 ML SYRINGE SC SCH (08:12)
[2022-02-17] MEDS: ASCORBIC ACID 500 MG TAB PO SCH ×2 (08:13→22:37)
[2022-02-17] MEDS: ZINC SULFATE 220mg CAP or TAB PO SCH (08:13)
[2022-02-17] MEDS: amLODIPine BESYLATE 5 MG TAB PO SCH ×2 (08:13→22:42)
[2022-02-17] MEDS: CHOLECALCIFEROL (VITD3) 2,000 UNIT CAP/TAB PO SCH (08:13)
[2022-02-17] MEDS: ASPirin 81 mg TAB PO SCH (08:14)
[2022-02-17] MEDS: ATENOLOL 25 MG TAB PO SCH ×2 (08:15→23:43)
[2022-02-17] MEDS: NYSTATIN TOPICAL POWDER 15GM TOP SCH ×2 (11:07→22:00)
[2022-02-17] MEDS: hydrALAZINE HCL 20 MG/ML VL IV PRN (12:34)
[2022-02-17] MEDS: ONDANSETRON HCL 4 MG/2 ML VIAL IV PRN (16:29)
[2022-02-17 18:01] LABS: Hematocrit 41.3 % (41.0-53.0); Hemoglobin 13.7 g/dL (13.5-17.5); Mean Corpuscular Hemoglobin 29.7 pg (28.0-32.0); Mean Corpuscular Hgb Conc. 33.2 g/dL (32.0-36.0); Mean Corpuscular Volume 89.5 fL (80.0-100.0); Red Blood Cells 4.61 10^6/uL (4.5-5.90); Red Cell Distribution Width 15.6 % (11.8-14.3); White Blood Cell 15.5 10^3/uL (4.4-10.8)
[2022-02-17 18:06] LABS: Basophils % (manual) 0 (0.0-2.0); Blast Cells 0; Eosinophils % (manual) 0 (0-7); Metamyelocytes % 0; Myelocytes % 0; Promyelocytes % 0; Reactive Lymphocytes 0
[2022-02-17 18:20] LABS: Albumin 2.6 g/dL (3.4-5.0); Calcium 9.4 mg/dL (8.5-10.1); Magnesium 2.8 mg/dL (1.6-2.6)
[2022-02-17 18:23] LABS: Band Neutrophils % (manual) 3; Bilirubin, Total 0.6 mg/dL (0.2-1.0); Lymphocytes % (manual) 9 (10.0-50.0); Monocytes % (manual) 3 (0-12); Total Protein 7.7 g/dL (6.4-8.2)
[2022-02-17] MEDS: ARIPIPRAZOLE 10 MG PO SCH (22:38)
[2022-02-18 05:00] VITALS: BP 128/60
[2022-02-18] MEDS: CAPTOPRIL 25 MG TAB PO SCH ×3 (06:00→21:03)
[2022-02-18] MEDS: InsuLIN REG 1unit/0.01ml Soln (100units/ml) SC SCH ×4 (06:02→21:14)
[2022-02-18] MEDS: ACCU-CHEK COMFORT CURVE STRIP VI SCH ×4 (06:02→21:13)
[2022-02-18] MEDS: hydrALAZINE HCL 25 MG TAB PO SCH ×3 (06:02→22:00)
[2022-02-18] MEDS: FLUoxetine HCL 20 MG CAP PO SCH (06:02)
[2022-02-18] MEDS: LEVOTHYROXINE SODIUM 100 MCG TAB PO SCH (06:02)
[2022-02-18] MEDS: ALBUTEROL MEDNEB 2.5 mg/3ml NEB NEB SCH ×3 (07:02→19:02)
[2022-02-18 08:43] VITALS: BP 120/66
[2022-02-18] MEDS: ASPirin 81 mg TAB PO SCH (08:58)
[2022-02-18] MEDS: CHOLECALCIFEROL (VITD3) 2,000 UNIT CAP/TAB PO SCH (08:58)
[2022-02-18] MEDS: ASCORBIC ACID 500 MG TAB PO SCH ×2 (08:58→21:03)
[2022-02-18] MEDS: amLODIPine BESYLATE 5 MG TAB PO SCH ×2 (08:58→21:02)
[2022-02-18] MEDS: methylPREDNISolone SOD SUCC 40 MG/ML VL IV SCH (08:58)
[2022-02-18] MEDS: ZINC SULFATE 220mg CAP or TAB PO SCH (08:58)
[2022-02-18] MEDS: HYDROcodone-ACET 10/325MG TAB PO PRN ×2 (08:58→17:30)
[2022-02-18] MEDS: FUROSEMIDE 40 MG/4 ML VIAL IV SCH (08:59)
[2022-02-18] MEDS: NYSTATIN TOPICAL POWDER 15GM TOP SCH ×2 (08:59→21:13)
[2022-02-18] MEDS: ENOXAPARIN SOD 40 MG/0.4 ML SYRINGE SC SCH (08:59)
[2022-02-18] MEDS: ATENOLOL 25 MG TAB PO SCH ×2 (10:37→21:03)
[2022-02-18 13:00] VITALS: BP 116/47
[2022-02-18 17:24] VITALS: BP 191/88
[2022-02-18 18:43] VITALS: BP 120/52
[2022-02-18] MEDS: ARIPIPRAZOLE 10 MG PO SCH (21:07)
[2022-02-18 22:00] VITALS: BP 136/75
[2022-02-19] MEDS: HYDROcodone-ACET 10/325MG TAB PO PRN ×3 (03:53→20:16)
[2022-02-19 05:00] VITALS: BP 133/73
[2022-02-19] MEDS: ALBUTEROL MEDNEB 2.5 mg/3ml NEB NEB SCH ×3 (06:12→19:46)
[2022-02-19] MEDS: InsuLIN REG 1unit/0.01ml Soln (100units/ml) SC SCH ×4 (06:33→22:18)
[2022-02-19] MEDS: FLUoxetine HCL 20 MG CAP PO SCH (06:33)
[2022-02-19] MEDS: ACCU-CHEK COMFORT CURVE STRIP VI SCH ×4 (06:33→22:12)
[2022-02-19] MEDS: LEVOTHYROXINE SODIUM 100 MCG TAB PO SCH (06:33)
[2022-02-19] MEDS: CAPTOPRIL 25 MG TAB PO SCH ×3 (06:35→23:58)
[2022-02-19] MEDS: hydrALAZINE HCL 25 MG TAB PO SCH ×3 (06:36→23:58)
[2022-02-19] MEDS: ASCORBIC ACID 500 MG TAB PO SCH ×2 (08:42→22:12)
[2022-02-19] MEDS: ZINC SULFATE 220mg CAP or TAB PO SCH (08:42)
[2022-02-19] MEDS: CHOLECALCIFEROL (VITD3) 2,000 UNIT CAP/TAB PO SCH (08:42)
[2022-02-19] MEDS: ASPirin 81 mg TAB PO SCH (08:42)
[2022-02-19] MEDS: ENOXAPARIN SOD 40 MG/0.4 ML SYRINGE SC SCH (08:43)
[2022-02-19] MEDS: methylPREDNISolone SOD SUCC 40 MG/ML VL IV SCH (08:43)
[2022-02-19] MEDS: amLODIPine BESYLATE 5 MG TAB PO SCH ×2 (08:43→22:11)
[2022-02-19] MEDS: FUROSEMIDE 40 MG/4 ML VIAL IV SCH (08:44)
[2022-02-19] MEDS: NYSTATIN TOPICAL POWDER 15GM TOP SCH ×2 (08:44→22:12)
[2022-02-19 09:00] VITALS: BP 118/70
[2022-02-19] MEDS: ATENOLOL 25 MG TAB PO SCH ×2 (09:51→22:12)
[2022-02-19 13:00] VITALS: BP 120/77
[2022-02-19 17:00] VITALS: BP 127/82
[2022-02-19 22:00] VITALS: BP 121/66
[2022-02-19] MEDS: ARIPIPRAZOLE 10 MG PO SCH (22:11)
[2022-02-20] VITALS (7 sets, daily range): BP systolic 107–137; BP diastolic 61–85
[2022-02-20] MEDS: HYDROcodone-ACET 10/325MG TAB PO PRN ×2 (05:08→13:00)
[2022-02-20] MEDS: CAPTOPRIL 25 MG TAB PO SCH ×3 (06:00→21:14)
[2022-02-20] MEDS: InsuLIN REG 1unit/0.01ml Soln (100units/ml) SC SCH ×4 (06:07→21:23)
[2022-02-20] MEDS: ACCU-CHEK COMFORT CURVE STRIP VI SCH ×4 (06:07→21:21)
[2022-02-20] MEDS: FLUoxetine HCL 20 MG CAP PO SCH (06:14)
[2022-02-20] MEDS: LEVOTHYROXINE SODIUM 100 MCG TAB PO SCH (06:14)
[2022-02-20] MEDS: hydrALAZINE HCL 25 MG TAB PO SCH ×3 (06:15→21:15)
[2022-02-20] MEDS: ALBUTEROL MEDNEB 2.5 mg/3ml NEB NEB SCH ×3 (06:35→19:23)
[2022-02-20] MEDS: methylPREDNISolone SOD SUCC 40 MG/ML VL IV SCH (10:04)
[2022-02-20] MEDS: ASPirin 81 mg TAB PO SCH (10:08)
[2022-02-20] MEDS: ZINC SULFATE 220mg CAP or TAB PO SCH (10:08)
[2022-02-20] MEDS: FUROSEMIDE 40 MG/4 ML VIAL IV SCH (10:08)
[2022-02-20] MEDS: CHOLECALCIFEROL (VITD3) 2,000 UNIT CAP/TAB PO SCH (10:09)
[2022-02-20] MEDS: ASCORBIC ACID 500 MG TAB PO SCH ×2 (10:09→21:19)
[2022-02-20] MEDS: ATENOLOL 25 MG TAB PO SCH ×2 (10:09→21:18)
[2022-02-20] MEDS: amLODIPine BESYLATE 5 MG TAB PO SCH ×2 (10:10→21:18)
[2022-02-20] MEDS: ENOXAPARIN SOD 40 MG/0.4 ML SYRINGE SC SCH (10:10)
[2022-02-20] MEDS: NYSTATIN TOPICAL POWDER 15GM TOP SCH ×2 (10:11→21:20)
[2022-02-20] MEDS: ACETAMINOPHEN 325 MG TAB PO PRN (21:19)
[2022-02-20] MEDS: ARIPIPRAZOLE 10 MG PO SCH (22:16)
[2022-02-21] MEDS: ACETAMINOPHEN 325 MG TAB PO PRN ×4 (04:44→20:50)
[2022-02-21 05:00] VITALS: BP 142/88
[2022-02-21] MEDS: hydrALAZINE HCL 25 MG TAB PO SCH ×2 (05:49→14:42)
[2022-02-21] MEDS: CAPTOPRIL 25 MG TAB PO SCH ×2 (05:49→14:43)
[2022-02-21] MEDS: ACCU-CHEK COMFORT CURVE STRIP VI SCH ×4 (06:34→21:32)
[2022-02-21] MEDS: InsuLIN REG 1unit/0.01ml Soln (100units/ml) SC SCH ×4 (06:34→21:32)
[2022-02-21] MEDS: LEVOTHYROXINE SODIUM 100 MCG TAB PO SCH (06:40)
[2022-02-21] MEDS: FLUoxetine HCL 20 MG CAP PO SCH (06:41)
[2022-02-21] MEDS: ALBUTEROL MEDNEB 2.5 mg/3ml NEB NEB SCH ×3 (08:02→19:25)
[2022-02-21 09:00] VITALS: BP 115/71
[2022-02-21] MEDS: CHOLECALCIFEROL (VITD3) 2,000 UNIT CAP/TAB PO SCH (09:30)
[2022-02-21] MEDS: ASCORBIC ACID 500 MG TAB PO SCH ×2 (09:30→21:18)
[2022-02-21] MEDS: FUROSEMIDE 40 MG/4 ML VIAL IV SCH (09:30)
[2022-02-21] MEDS: ZINC SULFATE 220mg CAP or TAB PO SCH (09:31)
[2022-02-21] MEDS: amLODIPine BESYLATE 5 MG TAB PO SCH ×2 (09:31→22:00)
[2022-02-21] MEDS: ASPirin 81 mg TAB PO SCH (09:31)
[2022-02-21] MEDS: ENOXAPARIN SOD 40 MG/0.4 ML SYRINGE SC SCH (09:32)
[2022-02-21] MEDS: ATENOLOL 25 MG TAB PO SCH (09:32)
[2022-02-21 13:00] VITALS: BP 113/72
[2022-02-21 13:26] VITALS: BP 113/72
[2022-02-21] MEDS: NYSTATIN TOPICAL POWDER 15GM TOP SCH ×2 (14:12→21:18)
[2022-02-21 16:48] VITALS: BP 96/53
[2022-02-21] MEDS: ARIPIPRAZOLE 10 MG PO SCH (21:18)
[2022-02-21 22:00] VITALS: BP 114/58
[2022-02-22] MEDS: ACETAMINOPHEN 325 MG TAB PO PRN ×3 (02:45→16:17)
[2022-02-22 05:00] VITALS: BP 129/63
[2022-02-22] MEDS: LEVOTHYROXINE SODIUM 100 MCG TAB PO SCH (06:09)
[2022-02-22] MEDS: ACCU-CHEK COMFORT CURVE STRIP VI SCH ×2 (06:09→12:27)
[2022-02-22] MEDS: FLUoxetine HCL 20 MG CAP PO SCH (06:09)
[2022-02-22] MEDS: ALBUTEROL MEDNEB 2.5 mg/3ml NEB NEB SCH ×2 (06:20→13:16)
[2022-02-22] MEDS: InsuLIN REG 1unit/0.01ml Soln (100units/ml) SC SCH ×2 (06:46→12:31)
[2022-02-22 09:00] VITALS: BP 158/58
[2022-02-22] MEDS: ZINC SULFATE 220mg CAP or TAB PO SCH (09:50)
[2022-02-22] MEDS: ASPirin 81 mg TAB PO SCH (09:50)
[2022-02-22] MEDS: ASCORBIC ACID 500 MG TAB PO SCH (09:52)
[2022-02-22] MEDS: CHOLECALCIFEROL (VITD3) 2,000 UNIT CAP/TAB PO SCH (09:52)
[2022-02-22] MEDS: ENOXAPARIN SOD 40 MG/0.4 ML SYRINGE SC SCH (09:53)
[2022-02-22] MEDS: NYSTATIN TOPICAL POWDER 15GM TOP SCH (09:53)
[2022-02-22] MEDS: FUROSEMIDE 40 MG/4 ML VIAL IV SCH (09:54)
[2022-02-22] MEDS ORDERED: ALBUTEROL SULF 2.5 MG/0.5ML(0.5%) NEB SOLN ONE (12:45)
[2022-02-22 13:00] VITALS: BP 144/67
== END 2022-02-22 16:30 | DRG 177 ==
LOC: ER 13:26 → TELE 17:33 → TELE-EAST 01-31 23:17
PROVIDERS: ADMIT Registered Nurse; ATTEND Family Medicine
PROC: XW033E5 Introduction of Remdesivir Anti-infective into Peripheral Vein, Percutaneous Approach, New Technology Group 5 (ICD-10-PCS; principal; 2022-02-01)
PROC: 05HB33Z Insertion of Infusion Device into Right Basilic Vein, Percutaneous Approach (ICD-10-PCS; 2022-02-11)
PROC: B54MZZA Ultrasonography of Right Upper Extremity Veins, Guidance (ICD-10-PCS; 2022-02-11)
DX: U07.1 COVID-19 (principal); I50.43 Acute on chronic combined systolic (congestive) and diastolic (congestive) heart failure; J12.82 Pneumonia due to coronavirus disease 2019; I63.9 Cerebral infarction, unspecified; J96.01 Acute respiratory failure with hypoxia; G40.209 Localization-related (focal) (partial) symptomatic epilepsy and epileptic syndromes with complex partial seizures, not intractable, without status epilepticus; E44.0 Moderate protein-calorie malnutrition; J98.11 Atelectasis; Z68.43 Body mass index [BMI] 50.0-59.9, adult; E66.01 Morbid (severe) obesity due to excess calories; E03.9 Hypothyroidism, unspecified; E11.9 Type 2 diabetes mellitus without complications; I11.0 Hypertensive heart disease with heart failure; D64.9 Anemia, unspecified; E87.6 Hypokalemia; L30.8 Other specified dermatitis; G45.4 Transient global amnesia; Z80.8 Family history of malignant neoplasm of other organs or systems; Z92.21 Personal history of antineoplastic chemotherapy; Z92.3 Personal history of irradiation; Z71.3 Dietary counseling and surveillance; Z23 Encounter for immunization
CPT/HCPCS: 36415; 36600; 70450; 70551; 71045; 80048; 80053; 80061; 81001; 82728; 82805; 82962; 83036; 83605; 83735; 83880; 84100; 84443; 84484; 85007; 85025; 85027; 85379; 85610; 85730; 86141; 87040; 87045; 87081; 87426; 87427; 87493; 93005; 93306; 93886; 93970; 94640; 94660; 95819; 96361; 96374; 96375; 97110; 97116; 97163; 97530; 99291; G0378; J0696; J1815; J2405